=== PATIENT | male | born 1935 | race Caucasian/White ===

== ENCOUNTER 2022-02-23 09:41 | Outpatient (CLI) | payer MEDICARE ==
[2022-02-23 21:12] LABS: SARS-CoV-2 PCR by NAA Not Detected (NotDetected)
== END 2022-02-23 09:42 | disposition home or self-care (01) ==
LOC: LABBT 09:41
PROVIDERS: ATTEND Family Medicine
DX: Z20.822 Contact with and (suspected) exposure to COVID-19 (principal)
CPT/HCPCS: U0003; U0005

== ENCOUNTER 2022-02-25 10:06 | Outpatient (CLI) | payer MEDICARE | END 2022-02-25 10:07 | disposition home or self-care (01) | LOC: RAD 10:07 | PROVIDERS: ATTEND Radiology Radiation Oncology | DX: R13.10 Dysphagia, unspecified (principal); C12 Malignant neoplasm of pyriform sinus | CPT/HCPCS: 71045; 74230 ==

== ENCOUNTER 2022-03-04 15:42 | Inpatient (IN) | payer MEDICARE ==
[2022-03-04] MEDS ORDERED: Ondansetron PF 4 MG/2 ML Vial IVP PRN (19:49)
[2022-03-04] MEDS ORDERED: Morphine 2 MG/ML VIAL SLOW IVP PRN (20:22)
[2022-03-04] MEDS: Dextrose 5 %-0.45 % NaCl 1,000 ML IV SCH (20:58)
[2022-03-04 22:15] VITALS: BMI 24.2
[2022-03-04] MEDS ORDERED: Fluconazole In NaCl,Iso-Osm 200 MG, Admixture Fee 1 EACH in Premix Bag 1 BAG IVPB SCH (22:45)
[2022-03-04] MEDS ORDERED: Ketorolac Tromethamine 30 MG/ML VIAL IVP SCH (23:00)
[2022-03-04] MEDS ORDERED: Fluconazole In NaCl,Iso-Osm 200 MG in Premix Bag 1 BAG IVPB SCH (23:00)
[2022-03-04] MEDS: Morphine 4 MG/ML VIAL SLOW IVP PRN (23:37)
[2022-03-05] MEDS: Morphine 4 MG/ML VIAL SLOW IVP PRN ×4 (04:11→21:52)
[2022-03-05 04:55] LABS: #Eosinphils 0.1 thou/uL (0.0-0.7); #Lymphocytes 1.2 thou/uL (1.20-3.40); #Monocytes 0.8 thou/uL (0.11-0.59); #Neutrophils 4.5 thou/uL (1.40-6.50); %Basophils 0.2 % (0.0-1.0); %Eosinophils 2.2 % (0.0-10.0); %Lymphocytes 18.2 % (21.0-51.0); %Monocytes 11.3 % (0.0-10.0); %Neutrophils 68.2 % (42.0-75.0); Hemoglobin 13.7 g/dL (14.0-18.0); Mean Corpuscular HGB CONC 33.7 g/dL (32.0-36.0); Mean Corpuscular Hemoglobin 32.2 pg (27.0-31.0); Mean Corpuscular Volume 95.5 fL (78.0-98.0); Mean Platelet Volume 8.3 fL (7.4-10.4); Platelet Count 197 thou/uL (130-400); RBC Distribution Width 13.6 % (11.5-14.5); Red Blood Cell (RBC) Count 4.26 mill/uL (4.70-6.10); White Blood Cell (WBC) Count 6.7 thou/uL (4.8-10.8)
[2022-03-05 05:16] LABS: Anion Gap 9 mmol/L (10-20); BUN (Urea Nitrogen) 8 mg/dL (8.4-25.7); Calc. Creatinine Clearance 66 mL/min (70-130); Calcium 8.8 mg/dL (7.8-10.44); Carbon Dioxide 30 mmol/L (23-31); Chloride 103 mmol/L (98-107); Glucose 115 mg/dL (83-110); Potassium 3.6 mmol/L (3.5-5.1); Sodium 138 mmol/L (136-145)
[2022-03-05 05:47] LABS: Prothrombin Time 13.2 sec (12.0-14.7)
[2022-03-05 05:48] LABS: PTT 34.7 sec (22.9-36.1)
[2022-03-05] MEDS ORDERED: Fluconazole In NaCl,Iso-Osm 200 MG in Premix Bag 1 BAG IVPB SCH (09:00)
[2022-03-05] MEDS: Pantoprazole 40 MG VIAL IVP SCH (09:30)
[2022-03-05] MEDS: Fluconazole In NaCl,Iso-Osm 200 MG, Admixture Fee 1 EACH in Premix Bag 1 BAG IVPB SCH (09:31)
[2022-03-05] MEDS ORDERED: ceFAZolin (BATCH) 2 GM/100 ML BAG ONE ×2 (09:43→09:47)
[2022-03-05] MEDS ORDERED: Clindamycin/D5W 900 mg/50 ml Premix Bag ONE (09:44)
[2022-03-05] MEDS ORDERED: Levofloxacin 500 mg/D5W 100 ml Premix Bag ONE (09:44)
[2022-03-05] MEDS ORDERED: PROPOFOL 200 MG/20 ML VIAL ONE (09:52)
[2022-03-05] MEDS ORDERED: Lidocaine 1% PF 5 ML VIAL ONE (09:52)
[2022-03-05] MEDS ORDERED: Fentanyl 100 MCG/2 ML VIAL ONE (10:16)
[2022-03-05] MEDS ORDERED: Ondansetron HCl/PF 4 MG/2 ML Vial IVP PRN (10:18)
[2022-03-05] MEDS: Dextrose 5 %-0.45 % NaCl 1,000 ML IV SCH (11:25)
[2022-03-05 15:12] LABS: SARS-CoV-2 NAA Rapid Test Not Detected (NotDetected)
[2022-03-06] MEDS: Morphine 4 MG/ML VIAL SLOW IVP PRN ×5 (02:31→21:06)
[2022-03-06] MEDS: Dextrose 5 %-0.45 % NaCl 1,000 ML IV SCH ×3 (03:07→13:03)
[2022-03-06] MEDS ORDERED: predniSONE 20 MG TAB PO SCH (08:00)
[2022-03-06] MEDS ORDERED: predniSONE 5 MG TAB PO SCH (08:00)
[2022-03-06] MEDS: Lidocaine Viscous Sol 2% 15 ml UD Cup SSP SCH ×4 (08:57→21:07)
[2022-03-06] MEDS: Pantoprazole 40 MG VIAL IVP SCH (08:57)
[2022-03-06] MEDS ORDERED: Clindamycin/D5W 600 MG in Premix Bag 1 BAG IVPB SCH (09:00)
[2022-03-06] MEDS: Fluconazole In NaCl,Iso-Osm 200 MG, Admixture Fee 1 EACH in Premix Bag 1 BAG IVPB SCH (09:38)
[2022-03-06] MEDS ORDERED: Bupivacaine 0.25% 10 ML VIAL ONE ×2 (10:27→10:32)
[2022-03-06] MEDS ORDERED: EPINEPHrine 1 MG/ML AMP ONE (10:27)
[2022-03-06] MEDS ORDERED: fentaNYL Citrate/PF 100 MCG/2 ML SYRINGE ONE (10:35)
[2022-03-06] MEDS ORDERED: SUGAMMADEX SODIUM 200 MG/2 ML VIAL ONE (10:42)
[2022-03-06] MEDS ORDERED: Dexamethasone 20 MG/5 ML VIAL ONE (10:55)
[2022-03-06] MEDS ORDERED: PROPOFOL 200 MG/20 ML VIAL ONE (10:55)
[2022-03-06] MEDS ORDERED: Racepinephrine 2.25% 0.5 ML NEB ONE (11:26)
[2022-03-06] MEDS ORDERED: Metoprolol Tartrate 5 MG/5 ML VIAL ONE ×2 (11:45→11:46)
[2022-03-06] MEDS ORDERED: Ketamine 50 MG/ML (10ML VIAL) ONE (12:02)
[2022-03-06 12:24] LABS: Actual Bicarbonate (HCO3a) 25.5 mEq/L (22-28); Base Excess (BEa) -0.2 mEq/L (-2.0 to +3.0); CO2 Tension 45.8 mmHg (35.0-45.0); Calcium, Ionized (arterial) 1.15 mmol/L (1.12-1.30); Carboxyhemoglobin (COHb) 1.1 gm% (0.0-3.0); Hemoglobin (Hb) 14.6 g/dL (14.0-18.0); O2 Tension (PaO2), arterial 75.4 mmHg (> 60.0); Potassium - ABG Lab 3.82 mmol/L (3.70-5.30); pH, Arterial 7.36 (7.35-7.45)
[2022-03-06 12:29] LABS: Puncture Site RBA
[2022-03-06] MEDS ORDERED: Dexamethasone 4 mg/ml Vial IVPB SCH (13:30)
[2022-03-06] MEDS ORDERED: Dexamethasone 4 MG in Sodium Chloride 0.9% 50 ML IVPB SCH (13:45)
[2022-03-07] MEDS: Dextrose 5 %-0.45 % NaCl 1,000 ML IV SCH ×2 (02:24→16:55)
[2022-03-07 06:13] LABS: #Lymphocytes 0.8 thou/uL (1.20-3.40); #Monocytes 0.7 thou/uL (0.11-0.59); #Neutrophils 6.3 thou/uL (1.40-6.50); %Basophils 0.2 % (0.0-1.0); %Eosinophils 0.1 % (0.0-10.0); %Lymphocytes 10.2 % (21.0-51.0); %Monocytes 8.6 % (0.0-10.0); Hemoglobin 14.8 g/dL (14.0-18.0); Mean Corpuscular HGB CONC 33.8 g/dL (32.0-36.0); Mean Corpuscular Hemoglobin 31.9 pg (27.0-31.0); Mean Corpuscular Volume 94.5 fL (78.0-98.0); Platelet Count 215 thou/uL (130-400); Red Blood Cell (RBC) Count 4.64 mill/uL (4.70-6.10); White Blood Cell (WBC) Count 7.7 thou/uL (4.8-10.8)
[2022-03-07 06:32] LABS: Anion Gap 14 mmol/L (10-20); BUN (Urea Nitrogen) 14 mg/dL (8.4-25.7); Calc. Creatinine Clearance 75 mL/min (70-130); Calcium 8.8 mg/dL (7.8-10.44); Carbon Dioxide 23 mmol/L (23-31); Chloride 102 mmol/L (98-107); Glucose 145 mg/dL (83-110); Sodium 135 mmol/L (136-145)
[2022-03-07] MEDS: Dexamethasone 4 MG in Sodium Chloride 0.9% 50 ML IVPB SCH (09:03)
[2022-03-07] MEDS: Morphine 4 MG/ML VIAL SLOW IVP PRN ×4 (09:03→20:59)
[2022-03-07] MEDS: Lidocaine Viscous Sol 2% 15 ml UD Cup SSP SCH ×4 (09:03→21:01)
[2022-03-07] MEDS: Pantoprazole 40 MG VIAL IVP SCH (09:03)
[2022-03-07] MEDS: Fluconazole In NaCl,Iso-Osm 200 MG, Admixture Fee 1 EACH in Premix Bag 1 BAG IVPB SCH (10:21)
[2022-03-07] MEDS ORDERED: diphenhydrAMINE 50 MG/ML VIAL IVP PRN (13:55)
[2022-03-08] MEDS: Morphine 4 MG/ML VIAL SLOW IVP PRN ×3 (00:08→15:14)
[2022-03-08 08:14] VITALS: BP 156/88; TEMP 97.5
[2022-03-08] MEDS: Dextrose 5 %-0.45 % NaCl 1,000 ML IV SCH (09:42)
[2022-03-08] MEDS: Dexamethasone 4 MG in Sodium Chloride 0.9% 50 ML IVPB SCH (09:42)
[2022-03-08] MEDS: Lidocaine Viscous Sol 2% 15 ml UD Cup SSP SCH ×3 (09:42→16:39)
[2022-03-08] MEDS: Pantoprazole 40 MG VIAL IVP SCH (09:43)
[2022-03-08] MEDS: Fluconazole In NaCl,Iso-Osm 200 MG, Admixture Fee 1 EACH in Premix Bag 1 BAG IVPB SCH (10:32)
== END 2022-03-08 17:45 | disposition home or self-care (01) | DRG 147 ==
LOC: INTOOBSV 18:24 → MSONC 18:24 → OBSVTOIN 03-05 14:38
PROVIDERS: ADMIT Emergency Medicine; ATTEND Emergency Medicine
PROC: 0DJ08ZZ Inspection of Upper Intestinal Tract, Via Natural or Artificial Opening Endoscopic (ICD-10-PCS; principal; 2022-03-05)
PROC: 0CJS8ZZ Inspection of Larynx, Via Natural or Artificial Opening Endoscopic (ICD-10-PCS; 2022-03-06)
DX: C32.9 Malignant neoplasm of larynx, unspecified (principal); B37.0 Candidal stomatitis; C77.0 Secondary and unspecified malignant neoplasm of lymph nodes of head, face and neck; C12 Malignant neoplasm of pyriform sinus; R13.12 Dysphagia, oropharyngeal phase; Z20.822 Contact with and (suspected) exposure to COVID-19; Z28.21 Immunization not carried out because of patient refusal; K21.9 Gastro-esophageal reflux disease without esophagitis; E03.9 Hypothyroidism, unspecified; G30.9 Alzheimer's disease, unspecified; F02.80 Dementia in other diseases classified elsewhere, unspecified severity, without behavioral disturbance, psychotic disturbance, mood disturbance, and anxiety; D64.9 Anemia, unspecified; G89.29 Other chronic pain; M54.9 Dorsalgia, unspecified; M19.90 Unspecified osteoarthritis, unspecified site; F32.A Depression, unspecified; I10 Essential (primary) hypertension; I48.91 Unspecified atrial fibrillation; Z53.20 Procedure and treatment not carried out because of patient's decision for unspecified reasons; Z88.0 Allergy status to penicillin; Z88.2 Allergy status to sulfonamides; Z91.041 Radiographic dye allergy status; Z79.899 Other long term (current) drug therapy; Z79.890 Hormone replacement therapy; Z79.82 Long term (current) use of aspirin; Z90.49 Acquired absence of other specified parts of digestive tract; Z80.49 Family history of malignant neoplasm of other genital organs; Z87.891 Personal history of nicotine dependence
CPT/HCPCS: 36415; 36600; 77336; 77386; 80048; 82805; 85025; 85610; 85730; 86850; 86900; 86901; 96374; 96375; 96376; C9113; G0378; J0171; J0690; J1100; J1200; J1450; J1956; J2270; J2704; J3010; J3490; J7042; S0020; U0002

== ENCOUNTER 2022-03-20 15:31 | Inpatient (IN) | payer MEDICARE ==
[2022-03-20 16:15] LABS: #Lymphocytes 0.9 thou/uL (1.20-3.40); #Monocytes 0.8 thou/uL (0.11-0.59); %Eosinophils 0.4 % (0.0-10.0); %Lymphocytes 7.6 % (21.0-51.0); %Monocytes 6.4 % (0.0-10.0); %Neutrophils 85.5 % (42.0-75.0); Mean Corpuscular HGB CONC 31.9 g/dL (32.0-36.0); Mean Corpuscular Hemoglobin 30.8 pg (27.0-31.0); Mean Corpuscular Volume 96.4 fL (78.0-98.0); Mean Platelet Volume 8.3 fL (7.4-10.4); Platelet Count 142 thou/uL (130-400); RBC Distribution Width 13.4 % (11.5-14.5); Red Blood Cell (RBC) Count 4.22 mill/uL (4.70-6.10); White Blood Cell (WBC) Count 11.6 thou/uL (4.8-10.8)
[2022-03-20 16:38] LABS: ALT (SGPT) 29 U/L (8-55); AST (SGOT) 19 U/L (5-34); Albumin 3.2 g/dL (3.4-4.8); Alkaline Phosphatase 60 U/L (40-110); Anion Gap 12 mmol/L (10-20); BUN (Urea Nitrogen) 26 mg/dL (8.4-25.7); Bilirubin, Total 1.7 mg/dL (0.2-1.2); Calc. Creatinine Clearance 0 mL/min (70-130); Calcium 8.1 mg/dL (7.8-10.44); Carbon Dioxide 25 mmol/L (23-31); Chloride 105 mmol/L (98-107); Globulin 2.2 g/dL (2.4-3.5); Glucose 105 mg/dL (83-110); Potassium 3.9 mmol/L (3.5-5.1); Protein, Total 5.4 g/dL (5.8-8.1); Sodium 138 mmol/L (136-145)
[2022-03-20 17:00] LABS: CKMB 1.3 ng/mL (0-6.6)
[2022-03-20] MEDS ORDERED: cefTRIAXone\\ROCEPHIN 2 GM VIAL ONE (18:15)
[2022-03-20 19:40] LABS: Bacteria/HPF None Seen HPF (None Seen); Bilirubin Negative (Negative); Blood, Urine Negative (Negative); Clarity Clear (Clear); Glucose, Urine (Dipstick) Normal (Negative); Ketone, Urine Negative (Negative); Leukocyte Negative Leu/uL (Negative); Nitrite Negative (Negative); Protein, Urine (Dipstick) 30 mg/dL (Neg-Trace); RBC/HPF 0-3 HPF (0-3); Specific Gravity, Urine 1.024 (1.002-1.036); Squamous Epithelial None Seen HPF (0-3); WBC/HPF 0-3 HPF (0-3)
[2022-03-20] MEDS ORDERED: Ondansetron PF 4 MG/2 ML Vial IVP PRN (20:15)
[2022-03-20] MEDS ORDERED: Ondansetron ODT 4 MG TAB SL PRN (20:15)
[2022-03-20] MEDS ORDERED: Acetaminophen 325 MG TAB PO PRN (20:15)
[2022-03-20] MEDS ORDERED: Vancomycin 1.5 GRAM/300 ML BAG 1.5 GM in Premix Bag 1 BAG IVPB SCH (21:00)
[2022-03-20] MEDS ORDERED: Acetaminophen 650 MG Suppository PR PRN (21:02)
[2022-03-20 22:19] VITALS: BMI 18.6
[2022-03-20] MEDS ORDERED: Doxycycline 100 MG in Sodium Chloride 0.9% 100 ML IVPB SCH (23:59)
[2022-03-21] MEDS: Morphine 4 MG/ML VIAL SLOW IVP PRN ×4 (03:39→20:45)
[2022-03-21 07:35] LABS: #Eosinphils 0.1 thou/uL (0.0-0.7); #Lymphocytes 0.7 thou/uL (1.20-3.40); #Monocytes 0.5 thou/uL (0.11-0.59); %Basophils 0.6 % (0.0-1.0); %Eosinophils 1.8 % (0.0-10.0); %Lymphocytes 9.5 % (21.0-51.0); %Monocytes 6.4 % (0.0-10.0); %Neutrophils 81.7 % (42.0-75.0); Hemoglobin 12.3 g/dL (14.0-18.0); Mean Corpuscular HGB CONC 31.1 g/dL (32.0-36.0); Mean Corpuscular Hemoglobin 30.7 pg (27.0-31.0); Mean Corpuscular Volume 98.7 fL (78.0-98.0); Mean Platelet Volume 8.3 fL (7.4-10.4); Platelet Count 121 thou/uL (130-400); RBC Distribution Width 13.2 % (11.5-14.5); Red Blood Cell (RBC) Count 4.01 mill/uL (4.70-6.10); White Blood Cell (WBC) Count 7.3 thou/uL (4.8-10.8)
[2022-03-21 07:43] LABS: Chloride 107 mmol/L (98-107); Potassium 3.7 mmol/L (3.5-5.1); Sodium 138 mmol/L (136-145)
[2022-03-21 07:44] LABS: Glucose 77 mg/dL (83-110)
[2022-03-21 07:46] LABS: Carbon Dioxide 23 mmol/L (23-31)
[2022-03-21 07:48] LABS: BUN (Urea Nitrogen) 21 mg/dL (8.4-25.7); Calc. Creatinine Clearance 49 mL/min (70-130)
[2022-03-21 07:56] LABS: Anion Gap 11 mmol/L (10-20)
[2022-03-21] MEDS: guaiFENesin ER 600 MG TAB PO SCH ×2 (09:39→20:46)
[2022-03-21] MEDS: Enoxaparin Sodium 40 MG/0.4 ML SYRINGE SC SCH (09:39)
[2022-03-21] MEDS: metroNIDAZOLE 500 MG in Premix Bag 1 BAG IVPB SCH ×2 (09:45→17:07)
[2022-03-21] MEDS ORDERED: Lidocaine 5% Patch TD SCH (11:15)
[2022-03-21 18:02] LABS: SARS-CoV-2 PCR by NAA Not Detected (NotDetected)
[2022-03-21] MEDS: valACYclovir 500 MG TAB PO SCH (20:46)
[2022-03-21] MEDS: Donepezil HCl 10 MG TAB PO SCH (20:46)
[2022-03-21] MEDS: DULoxetine 60 MG CAP PO SCH ×2 (20:46→21:10)
[2022-03-21] MEDS: Transdermal Patch Removal TOP SCH (21:10)
[2022-03-21] MEDS ORDERED: Cefepime 2 GM in Sodium Chloride 0.9% 100 ML IVPB SCH (23:00)
[2022-03-22] MEDS: HYDROcodone/Acetaminophen 10/325 mg Tablet PO PRN ×3 (01:06→21:06)
[2022-03-22] MEDS: metroNIDAZOLE 500 MG in Premix Bag 1 BAG IVPB SCH ×3 (01:07→16:42)
[2022-03-22] MEDS: Levothyroxine Sodium 25 MCG TAB PO SCH (04:57)
[2022-03-22] MEDS: DULoxetine 60 MG CAP PO SCH ×2 (08:42→21:05)
[2022-03-22] MEDS: Montelukast Sodium 10 mg Tablet PO SCH (08:42)
[2022-03-22] MEDS: Famotidine 20 MG TAB PO SCH (08:42)
[2022-03-22] MEDS: guaiFENesin ER 600 MG TAB PO SCH ×2 (08:42→21:05)
[2022-03-22] MEDS: Lidocaine 5% Patch TD SCH (08:43)
[2022-03-22] MEDS: Enoxaparin Sodium 40 MG/0.4 ML SYRINGE SC SCH (08:43)
[2022-03-22] MEDS: Cefepime 2 GM in Sodium Chloride 0.9% 100 ML IVPB SCH ×2 (11:27→23:16)
[2022-03-22] MEDS: Morphine 2 MG/ML VIAL SLOW IVP PRN (15:38)
[2022-03-22] MEDS: Donepezil HCl 10 MG TAB PO SCH (21:04)
[2022-03-22] MEDS: valACYclovir 500 MG TAB PO SCH (21:05)
[2022-03-22] MEDS: Transdermal Patch Removal TOP SCH (21:09)
[2022-03-23] MEDS: Morphine 2 MG/ML VIAL SLOW IVP PRN ×5 (00:08→23:07)
[2022-03-23] MEDS: metroNIDAZOLE 500 MG in Premix Bag 1 BAG IVPB SCH ×3 (00:10→17:56)
[2022-03-23] MEDS: Levothyroxine Sodium 25 MCG TAB PO SCH (06:12)
[2022-03-23] MEDS: Lidocaine 5% Patch TD SCH (09:09)
[2022-03-23] MEDS: Enoxaparin Sodium 40 MG/0.4 ML SYRINGE SC SCH (09:10)
[2022-03-23] MEDS: Famotidine 20 MG TAB PO SCH (09:11)
[2022-03-23] MEDS: guaiFENesin ER 600 MG TAB PO SCH ×2 (09:11→20:40)
[2022-03-23] MEDS: DULoxetine 60 MG CAP PO SCH ×2 (09:11→20:40)
[2022-03-23] MEDS: Montelukast Sodium 10 mg Tablet PO SCH (09:11)
[2022-03-23] MEDS: Cefepime 2 GM in Sodium Chloride 0.9% 100 ML IVPB SCH ×2 (11:12→23:01)
[2022-03-23] MEDS: HYDROcodone/Acetaminophen 10/325 mg Tablet PO PRN (14:14)
[2022-03-23] MEDS: Donepezil HCl 10 MG TAB PO SCH (20:40)
[2022-03-23] MEDS: valACYclovir 500 MG TAB PO SCH (20:40)
[2022-03-23] MEDS: Transdermal Patch Removal TOP SCH (23:01)
[2022-03-24] MEDS: metroNIDAZOLE 500 MG in Premix Bag 1 BAG IVPB SCH ×3 (01:22→16:26)
[2022-03-24] MEDS: Morphine 2 MG/ML VIAL SLOW IVP PRN ×4 (03:35→20:26)
[2022-03-24] MEDS: Levothyroxine Sodium 25 MCG TAB PO SCH (05:12)
[2022-03-24 06:00] LABS: Anion Gap 14 mmol/L (10-20); BUN (Urea Nitrogen) 13 mg/dL (8.4-25.7); Calc. Creatinine Clearance 58 mL/min (70-130); Calcium 8.7 mg/dL (7.8-10.44); Carbon Dioxide 21 mmol/L (23-31); Chloride 107 mmol/L (98-107); Glucose 79 mg/dL (83-110); Magnesium 1.7 mg/dL (1.6-2.6); Phosphorus 2.7 mg/dL (2.3-4.7); Sodium 138 mmol/L (136-145)
[2022-03-24] MEDS: Lidocaine 5% Patch TD SCH (08:35)
[2022-03-24] MEDS: Enoxaparin Sodium 40 MG/0.4 ML SYRINGE SC SCH (08:35)
[2022-03-24] MEDS: Famotidine 20 MG TAB PO SCH (10:41)
[2022-03-24] MEDS: DULoxetine 60 MG CAP PO SCH ×2 (10:41→19:36)
[2022-03-24] MEDS: Montelukast Sodium 10 mg Tablet PO SCH (10:43)
[2022-03-24] MEDS: guaiFENesin ER 600 MG TAB PO SCH ×2 (10:43→19:36)
[2022-03-24] MEDS: Cefepime 2 GM in Sodium Chloride 0.9% 100 ML IVPB SCH ×2 (11:39→22:44)
[2022-03-24] MEDS: HYDROcodone/Acetaminophen 10/325 mg Tablet PO PRN ×2 (11:43→22:38)
[2022-03-24] MEDS: Donepezil HCl 10 MG TAB PO SCH (19:36)
[2022-03-24] MEDS: valACYclovir 500 MG TAB PO SCH (19:36)
[2022-03-24] MEDS: Transdermal Patch Removal TOP SCH (22:47)
[2022-03-25] MEDS: metroNIDAZOLE 500 MG in Premix Bag 1 BAG IVPB SCH ×2 (00:57→09:34)
[2022-03-25] MEDS: Morphine 2 MG/ML VIAL SLOW IVP PRN ×3 (01:01→09:18)
[2022-03-25] MEDS: Levothyroxine Sodium 25 MCG TAB PO SCH (04:07)
[2022-03-25 08:24] VITALS: BP 111/65; TEMP 97.1
[2022-03-25] MEDS: DULoxetine 60 MG CAP PO SCH (09:14)
[2022-03-25] MEDS: Lidocaine 5% Patch TD SCH (09:15)
[2022-03-25] MEDS: Enoxaparin Sodium 40 MG/0.4 ML SYRINGE SC SCH (09:15)
[2022-03-25] MEDS: Famotidine 20 MG TAB PO SCH (09:26)
[2022-03-25] MEDS: guaiFENesin ER 600 MG TAB PO SCH (09:26)
[2022-03-25] MEDS: Montelukast Sodium 10 mg Tablet PO SCH (09:27)
== END 2022-03-25 11:34 | disposition hospice, home (50) | DRG 179 ==
LOC: ERS 15:31 → 2NO 19:59 → MSONC 03-22 19:38
PROVIDERS: ADMIT Internal Medicine; ATTEND Internal Medicine
DX: J69.0 Pneumonitis due to inhalation of food and vomit (principal); Z66 Do not resuscitate; Z51.5 Encounter for palliative care; Z20.822 Contact with and (suspected) exposure to COVID-19; C32.9 Malignant neoplasm of larynx, unspecified; C12 Malignant neoplasm of pyriform sinus; F03.90 Unspecified dementia, unspecified severity, without behavioral disturbance, psychotic disturbance, mood disturbance, and anxiety; E78.5 Hyperlipidemia, unspecified; K21.9 Gastro-esophageal reflux disease without esophagitis; G89.29 Other chronic pain; R29.6 Repeated falls; I49.3 Ventricular premature depolarization; R13.12 Dysphagia, oropharyngeal phase; M54.9 Dorsalgia, unspecified; E03.9 Hypothyroidism, unspecified; Z98.890 Other specified postprocedural states; Z93.1 Gastrostomy status; Z90.49 Acquired absence of other specified parts of digestive tract; Z88.0 Allergy status to penicillin; Z91.041 Radiographic dye allergy status; Z88.2 Allergy status to sulfonamides; Z79.890 Hormone replacement therapy; Z79.899 Other long term (current) drug therapy; Z87.891 Personal history of nicotine dependence
CPT/HCPCS: 36415; 70450; 71045; 71250; 72125; 80048; 80053; 81003; 81015; 82553; 83605; 83735; 84100; 84484; 85025; 87040; 87086; 93005; 93306; 94667; 96365; 96367; J0692; J0696; J1650; J2270; J3370; J3490; U0003; U0005